=== PATIENT | female | born 1980 | race Caucasian/White ===

== ENCOUNTER 2016-12-26 08:25 | Emergency (ER) | payer OTHER ==
[~2016-12-26] VITALS: Ht 160 cm; Wt 50.9 kg
[~2016-12-26 08:25] MED LIST: ATV1 PO; BUPR1SUB SL; CTP2 PO; DFL100 PO; NITR-5 PO
[2016-12-26 08:28] VITALS: TEMP 36.5; Ht 160 cm; Wt 50.9 kg
[2016-12-26] MEDS ORDERED: LIDOCAINE 4% CREAM 15 GM TUBE EXT ONE (09:00)
[2016-12-26] MEDS ORDERED: NITR-5 PO (09:06)
[2016-12-26] MEDS ORDERED: PRED20TA PO (09:06)
[2016-12-26] MEDS ORDERED: NUTR-218 (09:18)
[2016-12-26] MEDS ORDERED: BUPR1MIS SL (09:18)
[2016-12-26] MEDS ORDERED: LIDOCAINE HCL 2% JELLY 30 ML TUBE EXT ONE (09:22)
[2016-12-26 09:43] VITALS: BP 103/65; PULSE 76; O2SAT 97
[2016-12-26 09:50] LABS: URINE APPEARANCE CLEAR (CLEAR); URINE BILIRUBIN NEG (NEG); URINE COLOR YELLOW; URINE NITRITE NEG (NEG); URINE PH 5.5 (4.5-7.5); URINE SPECIFIC GRAVITY 1.003 (1.000-1.030); UROBILINOGEN NEG (NEG); ZZURINE CULT IF INDIC CATH NO
[2016-12-26 09:54] LABS: MANUAL MICROSCOPIC REQUIRED? NO; REVIEW REQ? NO
--- NOTE | 2016-12-26 16:27 | EMERGENCY ROOM VISIT NOTE ---
History First contact with patient: 08:36 Chief Complaint: SKIN PROBLEM Stated Complaint: VAGINAL ISSUES History of Present Illness The patient is a 36 year old female who presents to the Emergency Room with complaints of pain and swelling to her vaginal area that began yesterday. The patient states that she was seen and evaluated by her primary care physician yesterday and started Bactrim for a urinary tract infection. The patient states that roughly 20-30 minutes after starting the Bactrim she began having pain in her groin. She states that she has had a similar episode of this in the past, which also was related to Bactrim use. She required multiple ER visits as well as catheterization due to the amount of swelling that she had in her groin. The patient states that her symptoms are not to that extent, but she is concerned that this could happen. The patient is not having breathing difficulties, chest pain, chest tightness, shortness of breath, or abdominal pain. No rash. She has not taken anything [id number] for her symptoms. She rates her discomfort a 9/10. Review of Systems More than 10 systems were reviewed and otherwise negative with the exception of history of present illness. Past Medical/Surgical History No chronic medical disease Family History No pertinent family history Social History Smoking Status: Current Every Day Smoker Marital Status: Housing Status: lives with family Occupation Status: employed Current/Historical Medications Scheduled Buprenorphine Hcl-Naloxone Hcl (Suboxone 12-3 Mg), Unknown Dose SL QID Nitrofurantoin Monohyd Macrocr (Macrobid), 100 MG PO BID Nitrofurantoin Monohyd Macrocr (Macrobid), 100 MG PO BID Prednisone (Prednisone), 0 PO DAILY Miscellaneous Medications Nutritional Supplements (Juice Plus Fibre) Allergies Coded Allergies: Sulfamethoxazole w/Trimethoprim (Verified Allergy, Unknown, yeast infection, 12/26/16) Fluconazole (Unverified Adverse Reaction, Intermediate, VOMITING, 12/26/16) Physical Exam Vital Signs Date Time Temp Pulse Resp B/P Pulse Ox O2 Delivery O2 Flow Rate FiO2 12/26/16 09:43 76 18 103/65 97 Room Air 12/26/16 08:28 36.5 92 18 119/84 96 Room Air Pain Rating (0-10): 0 Physical Exam VITALS: Vitals are noted on the nurse's note and reviewed by myself. Vital signs stable. GENERAL: Well-developed, well-nourished, white female, who is in no acute distress and resting comfortably. Patient is cooperative with the examination. HEAD: Normocephalic atraumatic. MOUTH: Mucous membranes moist. Tonsils are not enlarged. Pharynx without erythema, blood, or exudate. Uvula midline. Airway patent. NECK: Supple without nuchal rigidity. No lymphadenopathy. No thyromegaly. Cervical spine is nontender. HEART: Regular rate and rhythm without murmurs gallops or rubs. LUNGS: Clear to auscultation bilaterally without wheezes, rales or rhonchi. No retractions or accessory muscle use. ABDOMEN: Positive normal bowel sounds x 4. Soft, nontender, without masses or organomegaly. No guarding or rebound tenderness. : Examination was performed in the presence of a female nurse manager reading. There is notable erythema and edema to the bilateral labia. There is no atypical drainage or discharge. This area is distinctly tender on palpation and internal exam was deferred. MUSCULOSKELETAL: No muscle atrophy, erythema, or edema noted. Full range of motion without joint tenderness in all extremities. Medical Decision & Procedures Laboratory Results Test 12/26/16 09:40 Urine Color YELLOW Urine Appearance CLEAR (CLEAR) Urine pH 5.5 (4.5-7.5) Urine Specific [place] 1.003 (1.000-1.030) Urine Protein NEG (NEG) Urine Glucose (UA) NEG (NEG) Urine Ketones NEG (NEG) Urine Occult Blood NEG (NEG) Urine Nitrite NEG (NEG) Urine Bilirubin NEG (NEG) Urine Urobilinogen NEG (NEG) Urine Leukocyte Esterase NEG (NEG) Medications Administered Medications (Trade) Dose Ordered Sig/William Route Start Time Stop Time Status Last Admin Dose Admin Prednisone (PredniSONE TAB) 60 mg NOW STAT PO 12/26/16 09:00 12/26/16 09:02 DC 12/26/16 09:18 60 MG Lidocaine (AneCream 4%) 1 appln NOW ONCE EXT 12/26/16 09:00 12/26/16 09:02 DC 12/26/16 09:23 1 APPLN Lidocaine HCl (Xylocaine Jelly 2%) 30 ml STK-MED ONCE EXT 12/26/16 09:22 12/26/16 09:23 DC 12/26/16 09:19 30 ML ED Course Physical exam and history were performed. Nursing notes and EMR were reviewed. Patient appears to have allergic reaction to Bactrim. She is exceptionally swollen and tender in the area of her labia. There is not signs of abscess or infection, and her symptoms are likely related to Bactrim, as she has had similar episodes like this in the past. I had a lengthy discussion with the patient regarding options of care. The patient will be started on prednisone with her first dose provided here in the department. She will also take Benadryl. The patient was given topical 4% lidocaine cream here in the department. One of her primary concerns with the patient's swelling was her ability to use the bathroom. She and I had a lengthy discussion regarding this , and ultimately we did elect to start a Yi catheter to help prevent urine issues should her swelling worsen. Overall the patient has a preference for discharge home, and this does appear reasonable. She will require very close follow-up for her symptoms. I will give her a long taper dose of prednisone and transition her to Macrobid. The patient was asked to return to the ER in the next 1-2 days if she is not able to be seen by her primary care physician. She was certainly invited back sooner with any new, worsening, or concerning symptoms. The chart was completed utilizing [employer] Speech Voice Recognition Software. Grammatical errors, random word insertions, pronoun errors, and incomplete sentences are an occasional consequence of this system due to software limitations, ambient noise, and hardware issues. Any formal questions or concerns about the content, text, or information contained within the body of this dictation should be directly addressed to the provider for clarification. . Medical Decision Differential diagnosis: Etiologies such as allergic reaction, anaphylaxis, urticaria, [place] syndrome, toxic epidermal necrolysis, erythema multiforme, cellulitis, as well as others were entertained. Impression Primary Impression: Allergic reaction to drug Departure Information Dispostion Home / Self-Care Condition GOOD Prescriptions Nitrofurantoin Monohyd Macrocr (Macrobid) 100 Mg Cap 100 MG PO BID for 7 Days, #14 CAP Prov: Yifan Irizarry PA-C 12/26/16 Prednisone (Prednisone) 20 Mg Tab 0 PO DAILY, #18 TAB 3 DAILY FOR 3 DAYS, THEN 2 DAILY FOR 3 DAYS, THEN 1 DAILY FOR 3 DAYS. Prov: Yifan Irizarry PA-C 4/18/17 Forms HOME CARE DOCUMENTATION FORM, Work Instructions, Additional Instructions: Patient was seen and evaluated today in the emergency department fo medical care. May return to normal activity on 01/02/2017. IMPORTANT VISIT INFORMATION Patient Instructions My [facility] Additional Instructions You were seen and evaluated today on an emergency basis only. This is not a substitute for, or an effort to provide, complete comprehensive medical care. It is not possible to recognize and treat all injuries or illnesses in a single emergency department visit. For this reason it is recommended that you followup with your primary care physician in the next 24-48 hours for recheck of your condition. If you are not able to be seen by her PCP please return to the ER. Take prednisone taper as prescribed. Take [id number] Benadryl 25 mg every 6 hours. This medication can make you tired. Do not take Bactrim in the future. You're likely allergic to this medication. Start Macrobid twice daily for the next week for your UTI Keep your Yi in place until symptoms have improved. Your family doctor can help you remove this. You are welcome to return to the emergency department anytime with new, worsening, or concerning symptoms. Work Instructions Additional Work Instructions: Patient was seen and evaluated today in the emergency department for medical care. May return to normal activity on 01/02/2017.
== END 2016-12-26 09:44 | disposition home or self-care (01) ==
LOC: C.EDB 08:27
DX: T78.40XA Allergy, unspecified, initial encounter (principal); X58.XXXA Exposure to other specified factors, initial encounter; F17.200 Nicotine dependence, unspecified, uncomplicated

== ENCOUNTER → 2017-09-25 | Outpatient (CLI) | payer OTHER ==
[~2017-09-25] MED LIST changes: -ATV1 PO; +BUPR1MIS SL; -BUPR1SUB SL; -CTP2 PO; -DFL100 PO; +NUTR-218
[2017-09-25 18:05] LABS: ALBUMIN 4.6 gm/dl (3.4-5.0); ALT/SGPT 18 U/L (12-78); AST/SGOT 21 U/L (15-37); BLOOD UREA NITROGEN 10 mg/dl (7-18); CALCIUM 9.3 mg/dl (8.5-10.1); CARBON DIOXIDE 28 mmol/L (21-32); CREATININE 0.63 mg/dl (0.60-1.20); GLUCOSE 65 mg/dl (70-99); POTASSIUM 3.6 mmol/L (3.5-5.1); SODIUM 138 mmol/L (136-145)
[2017-09-25 18:09] LABS: ALKALINE PHOSPHATASE 57 U/L (45-117); TOTAL PROTEIN 7.8 gm/dl (6.4-8.2)
== END | disposition home or self-care (01) ==
LOC: C.LABPVFM 12:07
PROVIDERS: ATTEND Family Medicine
DX: R21 Rash and other nonspecific skin eruption (principal)